=== PATIENT | male | born 1950 | race Caucasian/White ===

== ENCOUNTER 2023-08-11 10:41 | Outpatient (CLI) | payer MEDICARE, BC, SELFPAY | END 2023-08-11 10:42 | disposition home or self-care (01) | LOC: INJ CL 10:46 | PROVIDERS: PCP Physician Assistant Medical; Visit Provider Family Medicine | DX: M51.36 Other intervertebral disc degeneration, lumbar region (principal); M54.16 Radiculopathy, lumbar region | CPT/HCPCS: 62323; J0702; Q9966 ==